=== PATIENT | female | born 1990 | race Two or more races ===

== ENCOUNTER → 2025-02-15 | Outpatient (CLI) | payer MEDICAID, SELFPAY ==
--- NOTE | 2025-02-15 16:03 | XR_ITS ---
Examination: Abdomen AP single view Technique: AP portable supine abdomen, single view Exam date and time: February 15, 2025, 1607 hours INDICATIONS: Abdominal pain beginning 4 months ago FINDINGS: Moderate stool throughout the colon. No obstruction No free air. No renal or ureteral calculi Lung bases clear IMPRESSION: No renal or ureteral calculi Moderate stool throughout the colon
== END | disposition home or self-care (01) ==
PROVIDERS: PCP Internal Medicine; Referring Provider Surgery; Visit Provider Surgery
DX: K59.00 Constipation, unspecified (principal)
CPT/HCPCS: 74018